=== PATIENT | male | born 1980 | race Caucasian/White ===

== ENCOUNTER 2023-09-30 05:56 | Emergency (ER) | payer SELFPAY ==
[~2023-09-30] VITALS: Ht 165.1 cm; Wt 73.0 kg
[2023-09-30 05:58] VITALS: O2SAT 100
[2023-09-30] MEDS ORDERED: LIDOCAINE HCL/PF 1% 10 MG/ML 5ML VIAL INFIL ONE (06:15)
[2023-09-30 07:42] LABS: BASOPHILS % 0.7 % (0.0-2.0); EOSINOPHILS % 2.1 % (0.0-5.0); HEMOGLOBIN. 14.2 g/dL (14.0-18.0); LYMPHOCYTES % 22.1 % (20.0-50.0); MEAN CORPUSCULAR HEMOGLOBIN 31.5 pg (28.0-32.0); MEAN CORPUSCULAR HGB CONC 33.9 g/dL (31.0-37.0); MEAN PLATELET VOLUME 11.1 fl (7.4-10.4); MONOCYTES % 9.2 % (2.0-8.0); NEUTROPHILS % 65.9 % (40.0-76.0); PLATELET 118 x1000/uL (130-400); RED BLOOD CELL COUNT 4.51 mill/uL (4.7-6.1); RED CELL DISTRIBUTION WIDTH 12.5 % (11.6-14.6)
[2023-09-30 07:58] LABS: CALCIUM 8.9 mg/dL (8.7-10.4); CARBON DIOXIDE 27 mEq/L (21-32); CHLORIDE 106 mEq/L (98-107); CREATININE 0.8 mg/dL (0.6-1.3); GLUCOSE 101 mg/dL (70-105); POTASSIUM 3.8 mEq/L (3.5-5.1); SODIUM 140 mEq/L (136-145); UREA NITROGEN BLOOD 13 mg/dL (9-23)
[2023-09-30] MEDS ORDERED: ACETAMINOPHEN 325MG TABLET PO ONE (08:15)
[2023-09-30] MEDS ORDERED: TOPUD PO (08:15)
[2023-09-30 08:35] VITALS: BP 122/83; PULSE 68; RESP 14; TEMP 97.8
== END 2023-09-30 08:37 | disposition home or self-care (01) ==
LOC: ER 05:56
DX: S01.81XA Laceration without foreign body of other part of head, initial encounter (principal); W22.10XA Striking against or struck by unspecified automobile airbag, initial encounter; Y93.89 Activity, other specified; Y92.89 Other specified places as the place of occurrence of the external cause; Y99.8 Other external cause status
CPT/HCPCS: 99283; 80048; 85025; 36415; 12014; J3490

== ENCOUNTER 2023-10-07 14:53 | Emergency (ER) | payer SELFPAY ==
[~2023-10-07] VITALS: Ht 172.7 cm; Wt 78.0 kg
[~2023-10-07 14:53] MED LIST: TOPUD PO
[2023-10-07 15:01] VITALS: BP 134/79; PULSE 75; RESP 20; TEMP 98.4; O2SAT 98
== END 2023-10-07 18:55 | disposition home or self-care (01) ==
LOC: ER 15:59
DX: S01.81XD Laceration without foreign body of other part of head, subsequent encounter (principal); X58.XXXD Exposure to other specified factors, subsequent encounter
CPT/HCPCS: 99281